=== PATIENT | male | born 1980 | race Caucasian/White ===

== ENCOUNTER 2021-05-27 08:36 | Emergency (ER) | payer MEDICAID ==
[~2021-05-27] VITALS: Ht 185.4 cm; Wt 136.1 kg
[~2021-05-27 08:36] MED LIST: DIVA250T4 PO; SERT-160 PO
[2021-05-27] MEDS ORDERED: cloNIDine HCL 0.1 MG TAB PO ONE (09:30)
[2021-05-27] MEDS ORDERED: KETOROLAC TROMETH 60MG/2ML VIAL IM ONE (10:00)
[2021-05-27] MEDS ORDERED: ONDANSETRON ODT 4 MG TAB PO ONE (10:00)
[2021-05-27] MEDS ORDERED: MORPHINE SULFATE INJECTION 2 MG/ML SYRG IM ONE (10:00)
[2021-05-27] MEDS ORDERED: ACE3T PO (10:03)
[2021-05-27 11:00] VITALS: BP 164/109
== END 2021-05-27 11:00 | disposition home or self-care (01) ==
LOC: ER 08:36
DX: S82.142A Displaced bicondylar fracture of left tibia, initial encounter for closed fracture (principal); I10 Essential (primary) hypertension; J45.909 Unspecified asthma, uncomplicated; Z79.899 Other long term (current) drug therapy; X58.XXXA Exposure to other specified factors, initial encounter; Y93.89 Activity, other specified; Y92.89 Other specified places as the place of occurrence of the external cause; Y99.8 Other external cause status
CPT/HCPCS: 29505; 73562; 96372; 99283; J1885; J2270; Q0162